=== PATIENT | male | born 1930 | race Caucasian/White ===

== ENCOUNTER 2019-12-13 12:21 | Outpatient (CLI) | payer MEDICARE ==
[~2019-12-13 12:21] MED LIST: AMIO200T61 PO; APIX2.5T PO; CARV-49 PO; FURO40TA4 PO; LISI40TA4 PO; UBID100C16 PO
== END 2019-12-13 23:59 | disposition home or self-care (01) ==
LOC: CARD DIAG 12:21
PROVIDERS: ATTEND Internal Medicine Cardiovascular Disease
DX: I08.8 Other rheumatic multiple valve diseases (principal); I50.9 Heart failure, unspecified
CPT/HCPCS: 93306